=== PATIENT | female | born 1965 | race Two or more races ===

== ENCOUNTER 2022-06-26 19:34 | Inpatient (IN) | payer MEDICAID, OTHER ==
[~2022-06-26] VITALS: Ht 154.9 cm; Wt 107.4 kg
[2022-06-26 20:01] LABS: Basophils # (auto) 0.1 10 ^3/uL (0-0.2); Basophils % (auto) 1.4 % (0.0-2.0); Eosinophils # (auto) 0.2 10 ^3/uL (0-0.8); Eosinophils % (auto) 2.1 % (0.0-7.0); Hematocrit 38.1 % (36.0-46.0); Hemoglobin 12.2 g/dL (12.2-16.2); Lymphocytes # (auto) 1.4 10 ^3/uL (0.4-5.4); Lymphocytes % (auto) 13.8 % (10.0-50.0); Mean Corpuscular Hemoglobin 21.6 pg (28.0-32.0); Mean Corpuscular Volume 67.4 fL (80.0-100.0); Monocytes # (auto) 0.6 10 ^3/uL (0-1.3); Monocytes % (auto) 6.3 % (0.0-12.0); Neutrophils # (auto) 7.5 10 ^3/uL (1.6-8.6); Neutrophils % (auto) 76.4 % (37.0-80.0); Nucleated Red Blood Cells % 0.1 %; Red Blood Cells 5.65 10^6/uL (4.0-5.20); Red Cell Distribution Width 15.6 % (11.8-14.3); White Blood Cell 9.8 10^3/uL (4.4-10.8)
[2022-06-26 20:16] LABS: Albumin 2.7 g/dL (3.4-5.0); Calcium 8.1 mg/dL (8.5-10.1); Magnesium 2.4 mg/dL (1.6-2.6); Potassium 4.5 mmol/L (3.5-5.1)
[2022-06-26 20:18] LABS: INR 0.97 (0.9-1.15); Partial Thromboplastin Time 25.5 sec (24.6-33.4)
[2022-06-26 20:19] LABS: Bilirubin, Total 0.3 mg/dL (0.2-1.0); Total Protein 5.3 g/dL (6.4-8.2)
[2022-06-26] MEDS ORDERED: HYDROcodone-ACET 10/325MG TAB PO ONE (21:15)
[2022-06-26] MEDS ORDERED: HYDROcodone-ACET 10/325MG TAB PO PRN (23:45)
[2022-06-26] MEDS ORDERED: FUROSEMIDE 40 MG/4 ML VIAL IV ONE (23:45)
[2022-06-26] MEDS ORDERED: cloNIDine HCL 0.1 MG TAB PO ONE (23:45)
[2022-06-27] MEDS ORDERED: NITROGLYCERIN 0.4 MG SL TAB SL PRN (00:45)
[2022-06-27] MEDS ORDERED: DOCUSATE SOD 100 MG CAP PO PRN (00:45)
[2022-06-27] MEDS ORDERED: MORPHINE SULFATE INJ 2 MG/ml SYRG IV PRN ×2 (00:45)
[2022-06-27 02:20] LABS: Urine Bacteria NONE SEEN /hpf (None Seen); Urine Blood Negative /uL (Negative); Urine Mucus FEW (None Seen); Urine Specific Gravity 1.012 (1.001-1.035); Urine WBC 1 /hpf (0 - 5)
[2022-06-27] MEDS: hydrALAZINE HCL 20 MG/ML VL IV PRN (03:18)
[2022-06-27] MEDS: SODIUM CHLOR 0.9% PF (SALINE LOCK) 10ML VIAL/SYR IV SCH ×3 (06:06→22:25)
[2022-06-27 06:45] LABS: Basophils # (auto) 0.1 10 ^3/uL (0-0.2); Eosinophils # (auto) 0.1 10 ^3/uL (0-0.8); Hemoglobin 12.5 g/dL (12.2-16.2); Nucleated Red Blood Cells % 0.1 %
[2022-06-27 06:48] LABS: Basophils % (auto) 0.8 % (0.0-2.0); Hematocrit 38.5 % (36.0-46.0); Lymphocytes # (auto) 1.2 10 ^3/uL (0.4-5.4); Lymphocytes % (auto) 13.4 % (10.0-50.0); Mean Corpuscular Hemoglobin 22.1 pg (28.0-32.0); Mean Corpuscular Hgb Conc. 32.5 g/dL (32.0-36.0); Monocytes # (auto) 0.5 10 ^3/uL (0-1.3); Monocytes % (auto) 5.7 % (0.0-12.0); Neutrophils # (auto) 7.3 10 ^3/uL (1.6-8.6); Neutrophils % (auto) 79.1 % (37.0-80.0); Red Blood Cells 5.66 10^6/uL (4.0-5.20); Red Cell Distribution Width 15.7 % (11.8-14.3); White Blood Cell 9.2 10^3/uL (4.4-10.8)
[2022-06-27] MEDS: ONDANSETRON HCL 4 MG/2 ML VIAL IV PRN (06:59)
[2022-06-27 07:01] LABS: Potassium 4.7 mmol/L (3.5-5.1)
[2022-06-27 07:10] LABS: Albumin 2.8 g/dL (3.4-5.0); BUN/Creatinine Ratio 21.8 (10.0-20.0); Bilirubin, Total 0.5 mg/dL (0.2-1.0); Calcium 8.8 mg/dL (8.5-10.1); Total Protein 5.2 g/dL (6.4-8.2)
[2022-06-27] MEDS: FAMOTIDINE (10MG/ML) 2ML VL IV SCH (09:40)
[2022-06-27] MEDS: ASPirin 81 mg TAB PO SCH (09:40)
[2022-06-27] MEDS: CARVEDILOL 12.5 MG TAB PO SCH ×2 (09:41→22:26)
[2022-06-27] MEDS ORDERED: FUROSEMIDE 40 MG/4 ML VIAL IV SCH (10:00)
[2022-06-27] MEDS: HYDROcodone-ACET 5/325MG TAB PO PRN (16:51)
[2022-06-27] MEDS: ATORVASTATIN 20 MG TAB PO SCH (22:25)
[2022-06-27] MEDS: FUROSEMIDE 40 MG/4 ML VIAL IV SCH (22:25)
[2022-06-27] MEDS: ACETAMINOPHEN 325 MG TAB PO PRN (22:43)
[2022-06-28] MEDS: SODIUM CHLOR 0.9% PF (SALINE LOCK) 10ML VIAL/SYR IV SCH ×3 (05:43→22:29)
[2022-06-28 05:58] LABS: Lymphocytes # (auto) 0.7 10 ^3/uL (0.4-5.4); Monocytes # (auto) 0.6 10 ^3/uL (0-1.3)
[2022-06-28 06:00] LABS: Basophils # (auto) 0 10 ^3/uL (0-0.2); Basophils % (auto) 0.6 % (0.0-2.0); Eosinophils # (auto) 0 10 ^3/uL (0-0.8); Eosinophils % (auto) 0.5 % (0.0-7.0); Hematocrit 35.7 % (36.0-46.0); Hemoglobin 11.4 g/dL (12.2-16.2); Lymphocytes % (auto) 8.9 % (10.0-50.0); Mean Corpuscular Hemoglobin 22.1 pg (28.0-32.0); Mean Corpuscular Hgb Conc. 32.1 g/dL (32.0-36.0); Monocytes % (auto) 8.5 % (0.0-12.0); Neutrophils # (auto) 6.1 10 ^3/uL (1.6-8.6); Neutrophils % (auto) 81.5 % (37.0-80.0); Nucleated Red Blood Cells % 0.1 %; Red Blood Cells 5.17 10^6/uL (4.0-5.20); Red Cell Distribution Width 15.7 % (11.8-14.3); White Blood Cell 7.4 10^3/uL (4.4-10.8)
[2022-06-28 06:04] LABS: Potassium 4.8 mmol/L (3.5-5.1)
[2022-06-28] MEDS: ACETAMINOPHEN 325 MG TAB PO PRN ×3 (06:10→20:23)
[2022-06-28 06:16] LABS: Albumin 2.4 g/dL (3.4-5.0); BUN/Creatinine Ratio 16.2 (10.0-20.0); Bilirubin, Total 0.2 mg/dL (0.2-1.0); Calcium 8.3 mg/dL (8.5-10.1); Total Protein 5.1 g/dL (6.4-8.2)
[2022-06-28] MEDS: CARVEDILOL 12.5 MG TAB PO SCH ×2 (09:56→22:29)
[2022-06-28] MEDS: ASPirin 81 mg TAB PO SCH (09:57)
[2022-06-28] MEDS: FUROSEMIDE 40 MG/4 ML VIAL IV SCH ×2 (09:57→22:28)
[2022-06-28] MEDS: FAMOTIDINE (10MG/ML) 2ML VL IV SCH (09:57)
[2022-06-28] MEDS: HYDROcodone-ACET 5/325MG TAB PO PRN (17:02)
[2022-06-28 22:00] VITALS: BP 147/79
[2022-06-28] MEDS: ATORVASTATIN 20 MG TAB PO SCH (22:29)
[2022-06-29] VITALS (9 sets, daily range): BP systolic 123–156; BP diastolic 68–97
[2022-06-29 05:55] LABS: Basophils # (auto) 0 10 ^3/uL (0-0.2); Eosinophils # (auto) 0 10 ^3/uL (0-0.8); Hemoglobin 11.3 g/dL (12.2-16.2); Lymphocytes # (auto) 0.5 10 ^3/uL (0.4-5.4); Monocytes # (auto) 0.4 10 ^3/uL (0-1.3); Neutrophils % (auto) 87.5 % (37.0-80.0)
[2022-06-29 05:58] LABS: Basophils % (auto) 0.5 % (0.0-2.0); Eosinophils % (auto) 0.1 % (0.0-7.0); Hematocrit 35.4 % (36.0-46.0); Lymphocytes % (auto) 6.6 % (10.0-50.0); Mean Corpuscular Hemoglobin 22.2 pg (28.0-32.0); Mean Corpuscular Volume 69.3 fL (80.0-100.0); Monocytes % (auto) 5.3 % (0.0-12.0); Neutrophils # (auto) 6.9 10 ^3/uL (1.6-8.6); Red Blood Cells 5.11 10^6/uL (4.0-5.20); Red Cell Distribution Width 15.7 % (11.8-14.3); White Blood Cell 7.9 10^3/uL (4.4-10.8)
[2022-06-29] MEDS: SODIUM CHLOR 0.9% PF (SALINE LOCK) 10ML VIAL/SYR IV SCH ×3 (06:00→21:39)
[2022-06-29] MEDS: ONDANSETRON HCL 4 MG/2 ML VIAL IV PRN (08:39)
[2022-06-29] MEDS ORDERED: ALBUTEROL SULF 2.5 MG/0.5ML(0.5%) NEB SOLN NEB PRN (09:00)
[2022-06-29] MEDS ORDERED: IPRATROPIUM BROM 0.5 MG/2.5ML INH SOL NEB PRN (09:00)
[2022-06-29 10:31] LABS: BUN/Creatinine Ratio 16.7 (10.0-20.0); Calcium 8.5 mg/dL (8.5-10.1)
[2022-06-29] MEDS: CARVEDILOL 12.5 MG TAB PO SCH ×2 (11:49→21:38)
[2022-06-29] MEDS: FAMOTIDINE (10MG/ML) 2ML VL IV SCH (11:50)
[2022-06-29] MEDS: ASPirin 81 mg TAB PO SCH (11:50)
[2022-06-29] MEDS: FUROSEMIDE 40 MG/4 ML VIAL IV SCH ×2 (11:51→21:37)
[2022-06-29 12:57] LABS: Potassium 4.6 mmol/L (3.5-5.1)
[2022-06-29] MEDS: ATORVASTATIN 20 MG TAB PO SCH (21:37)
[2022-06-30 05:00] VITALS: BP 183/83
[2022-06-30] MEDS: ACETAMINOPHEN 325 MG TAB PO PRN (05:16)
[2022-06-30] MEDS: hydrALAZINE HCL 20 MG/ML VL IV PRN (05:16)
[2022-06-30] MEDS: SODIUM CHLOR 0.9% PF (SALINE LOCK) 10ML VIAL/SYR IV SCH ×3 (06:14→22:00)
[2022-06-30 09:00] VITALS: BP 126/60
[2022-06-30] MEDS: cefTRIAXone 1GM/50ML D5W 50 ML IV SCH (09:00)
[2022-06-30] MEDS ORDERED: KETOROLAC TROMETH 30 MG/ML 1ML VIAL IV ONE (09:00)
[2022-06-30] MEDS: FAMOTIDINE (10MG/ML) 2ML VL IV SCH (10:00)
[2022-06-30] MEDS: AZITHROMYCIN 500MG/ 250ML 250 ML IV SCH (10:00)
[2022-06-30] MEDS: LOSARTAN POTASSIUM 25 MG TAB PO SCH (10:00)
[2022-06-30] MEDS: ASPirin 81 mg TAB PO SCH (10:00)
[2022-06-30 13:00] VITALS: BP 148/85
[2022-06-30] MEDS: FUROSEMIDE 40 MG/4 ML VIAL IV SCH ×2 (14:36→22:32)
[2022-06-30 16:54] VITALS: BP 154/91
[2022-06-30 20:00] VITALS: BP 134/81
[2022-06-30 22:00] VITALS: BP 158/93
[2022-06-30] MEDS: CARVEDILOL 12.5 MG TAB PO SCH (22:31)
[2022-06-30] MEDS: ATORVASTATIN 20 MG TAB PO SCH (22:31)
[2022-07-01 05:00] VITALS: BP 100/70
[2022-07-01] MEDS: SODIUM CHLOR 0.9% PF (SALINE LOCK) 10ML VIAL/SYR IV SCH (06:00)
[2022-07-01 06:27] LABS: Basophils # (auto) 0 10 ^3/uL (0-0.2); Hemoglobin 11.7 g/dL (12.2-16.2); Monocytes # (auto) 0.8 10 ^3/uL (0-1.3); Neutrophils # (auto) 6.7 10 ^3/uL (1.6-8.6)
[2022-07-01 06:30] LABS: Basophils % (auto) 0.4 % (0.0-2.0); Eosinophils # (auto) 0 10 ^3/uL (0-0.8); Eosinophils % (auto) 0.5 % (0.0-7.0); Hematocrit 37.3 % (36.0-46.0); Lymphocytes # (auto) 0.9 10 ^3/uL (0.4-5.4); Lymphocytes % (auto) 10.3 % (10.0-50.0); Mean Corpuscular Hemoglobin 21.9 pg (28.0-32.0); Mean Corpuscular Hgb Conc. 31.4 g/dL (32.0-36.0); Mean Corpuscular Volume 69.7 fL (80.0-100.0); Monocytes % (auto) 9.6 % (0.0-12.0); Neutrophils % (auto) 79.2 % (37.0-80.0); Nucleated Red Blood Cells % 0.1 %; Red Blood Cells 5.35 10^6/uL (4.0-5.20); Red Cell Distribution Width 15.4 % (11.8-14.3); White Blood Cell 8.5 10^3/uL (4.4-10.8)
[2022-07-01] MEDS: FUROSEMIDE 40 MG/4 ML VIAL IV SCH (06:30)
[2022-07-01 06:37] LABS: BUN/Creatinine Ratio 24.4 (10.0-20.0); Calcium 8.6 mg/dL (8.5-10.1)
[2022-07-01 08:55] VITALS: BP 145/74
[2022-07-01] MEDS ORDERED: AZITTAB PO (09:53)
[2022-07-01] MEDS ORDERED: BUDE1AER4 IN (09:53)
[2022-07-01] MEDS ORDERED: ALBUAER3 IN (09:53)
[2022-07-01] MEDS ORDERED: FURO1TAB33 PO (09:53)
[2022-07-01] MEDS ORDERED: CAR125T OR (09:53)
[2022-07-01] MEDS: cefTRIAXone 1GM/50ML D5W 50 ML IV SCH ×2 (09:55→10:17)
[2022-07-01] MEDS: FAMOTIDINE (10MG/ML) 2ML VL IV SCH (09:55)
[2022-07-01] MEDS: AZITHROMYCIN 500MG/ 250ML 250 ML IV SCH ×2 (09:56→10:17)
[2022-07-01] MEDS: ASPirin 81 mg TAB PO SCH (10:27)
[2022-07-01] MEDS: CARVEDILOL 12.5 MG TAB PO SCH (10:29)
[2022-07-01] MEDS: LOSARTAN POTASSIUM 25 MG TAB PO SCH (10:30)
== END 2022-07-01 12:26 | disposition home or self-care (01) | DRG 194 ==
LOC: EDBD 19:34 → ER 19:34 → TELE 06-27 00:34 → TELE-WESTW 06-28 20:58
PROVIDERS: ADMIT Nurse Practitioner Family; ATTEND Nurse Practitioner Acute Care
DX: I11.0 Hypertensive heart disease with heart failure (principal); J96.21 Acute and chronic respiratory failure with hypoxia; I21.A1 Myocardial infarction type 2; J15.6 Pneumonia due to other Gram-negative bacteria; I50.43 Acute on chronic combined systolic (congestive) and diastolic (congestive) heart failure; E11.9 Type 2 diabetes mellitus without complications; E66.01 Morbid (severe) obesity due to excess calories; I34.0 Nonrheumatic mitral (valve) insufficiency; I16.0 Hypertensive urgency; I70.0 Atherosclerosis of aorta; Z79.84 Long term (current) use of oral hypoglycemic drugs; Z91.040 Latex allergy status; Z72.0 Tobacco use; Z68.42 Body mass index [BMI] 45.0-49.9, adult; E83.51 Hypocalcemia; E88.09 Other disorders of plasma-protein metabolism, not elsewhere classified; N17.9 Acute kidney failure, unspecified
CPT/HCPCS: 36415; 51702; 71045; 80048; 80053; 81001; 83735; 83880; 84484; 85025; 85610; 85730; 87081; 93005; 93306; 93970; 94640; 96374; 96375; G0378; J0696; J1885; J2405; J3490

== ENCOUNTER 2024-06-04 13:03 | Inpatient (IN) | payer MEDICAID ==
[~2024-06-04] VITALS: Ht 154.9 cm; Wt 106.3 kg
[~2024-06-04 13:03] MED LIST: ALBU108A5 INH; ALBUAER3 IN; AMLO1TAB22 PO; AZITTAB PO; BUDE1AER4 IN; CARV-216 OR; ERGO1CAP23 PO; FURO1TAB33 PO; METF-370 PO
--- NOTE | 2024-06-04 13:10 | ED.PDOC ---
SOB-HPI HPI Comments 58 year old female with PMHx of HTN, DM, hyperlipidemia, and CHF, presents to the ED via EMS for a chief complaint of SOB x 2-3 days associated with left sided chest pain radiating to her neck and left arm x today. EMS reports patient on scene had RR at 60, working hard to breath and is unable to speak a full sentence. Patient was saturating at 83% room air and placed on a breathing treatment. EMS reports patient is on 2 liters of oxygen at home but on scene, patient was not using oxygen. Patient had elevated blood pressure of 240 systolic, received 3 NTG with repeated blood pressure of 190 systolic. Patient denies any nausea, vomiting, diarrhea, abdominal pain, leg swelling, fever, chills or recent illness Time Seen by MD: 13:00 Reviewed notes: Nurses Notes, [employer] Principal Notes, Medications, Allergies Information Source: Patient, Emergency Med Personnel Mode of Arrival: EMS Severity: Moderate Timing: Days (2-3) Duration: Since onset Context: At Rest PE Risk Factors: None History of: CHF Prehospital treatment: 12 Lead EKG, Accucheck (103), Breathing Tx, [employer], NTG (3), Oxygen Modifying Factors: Nothing Associated Signs and Symptoms: Chest Pain Quality: Sharp Radiation: Neck, Arm (L) Location: Chest (L) Past Medical History PAST MEDICAL HISTORY: CHF, DM, High Lipids, HTN Surgical History: Denies all surgeries STRATEGIC PROCUREMENT MANAGER History: No Pertinent STRATEGIC PROCUREMENT MANAGER History Family History Family History: Reviewed,noncontributory to illness, No family hx of Cancer, No family hx of DM, No family hx of Heart cady, No family hx of HTN, No family hx ofKidney cady, No family hx of Liver cady, No family hx of Lung cady, No family hx of Stroke Social History Smoker: Non-Smoker Alcohol: Denies ETOH Use Drugs: Denies Drug Use Lives In: Home Constitutional: denies: chills, diaphoresis, fatigue, fever, malaise, sweats, weakness, others EENTM: denies: blurred vision, double vision, ear bleeding, ear discharge, ear drainage, ear pain, ear ringing, eye pain, eye redness, hearing loss, mouth pain, mouth swelling, nasal discharge, nose bleeding, nose congestion, nose pain, photophobia, tearing, throat pain, throat swelling, voice changes, others Respiratory: reports: SOB at rest, shortness of breath, SOB with excertion; denies: cough, hemoptysis, orthopnea, stridor, wheezing, others Cardiovascular: reports: chest pain, left arm pain; denies: dizzy spells, diaphoresis, Dyspnea on exertion, edema, irregular heart beat, lightheadedness, palpitations, PND, syncope, others Gastrointestinal: denies: abdomen distended, abdominal pain, blood streaked bowels, constipated, diarrhea, dysphagia, difficulty swallowing, hematemesis, melena, nausea, poor appetite, poor fluid intake, rectal bleeding, rectal pain, vomiting, others Genitourinary: denies: abnormal vagina bleeding, burning, dyspareunia, dysuria, flank pain, frequency, hematuria, incontinence, pain, , vagina disch arge, urgency, others Neurological: denies: dizziness, fainting, headache, left sided numbness, left sided weakness, numbness, paresthesia, pre-existing deficit, right sided numbness, right sided weakness, seizure, speech problems, tingling, tremors, weakness, others Musculoskeletal: reports: neck pain; denies: back pain, gout, joint pain, joint swelling, muscle pain, muscle stiffness, others Integumetry: denies: bruises, change in color, change in hair/nails, dryness, laceration, lesions, lumps, rash, wounds, others Allergic/Immunocompromised: denies: Difficulty Healing, Frequent Infections, Hives, Itching, others Hematologic/Lymphatic: denies: anemia, blood clots, easy bleeding, easy bruising, swollen glands, others Endocrine: denies: excessive hunger, excessive sweating, excessive thirst, excessive urination, flushing, intolerance to cold, intolerance to heat, unexplained weight gain, unexplained weight loss, others Psychiatric: denies: anxiety, bipolar disorder, depression, hopeless, panic disorder, schizophrenia, sleepless, suicidal, others All Other Systems: Reviewed and Negative Physical Exam General Appearance: Moderate Distress, Obese HEENT: Normal ENT Inspection, Pharynx Normal, TMs Normal Neck: Full Range of Motion, Non-Tender, Normal, Normal Inspection Respiratory: Chest Non-Tender, Decreased Breath Sounds, Lungs Clear, No Accessory Muscle Use, Respiratory Distress Cardiovascular: No Edema, No JVD, No Murmur, No Gallop, Normal Peripheral Pulses, Regular Rate/Rhythm Breast Exam: Deferred Gastrointestinal: No Organomegaly, Non Tender, No Pulsatile Mass, Normal Bowel Sounds, Soft Genitalia: Deferred Pelvic: Deferred Rectal: Deferred Extremities: No calf tenderness, Normal capillary refill, Normal inspection, Normal range of motion, Non-tender, No pedal edema Musculoskeletal : Apperance: Normal Neurologic: Alert, section beamer II-XII nml as Tested, Motor Weakness, Normal Affect, Normal Mood, No Sensory Deficits Cerebellar Function: Normal Reflexes: Normal Skin: Dry, Pallor, Warm Lymphatic: No Adenopathy EKG EKG : Pulse Rate (adult): 75 [place]: Normal Cardiac Rhythm: NSR Block: RBBB Hypertrophy: LAE Was a procedure done? Was a procedure done?: No Differential Dx Differential Diagnosis: Bronchitis, CHF, COPD, Hyperventilation, Hyponatremia, Myocardial infarction, Pneumonia, Pneumothorax, Pulmonary Embolism, Respiratory Distress, URI X-Ray, Labs, Meds, VS Vital Signs Date Time Temp Pulse Resp B/P (MAP) Pulse Ox O2 Delivery O2 Flow Rate FiO2 06/04/24 14:00 172/101 06/04/24 14:00 77 14 98 Nasal Cannula* 6 44 06/04/24 13:37 97.9 77 14 172/101 (124) 98 97.9 06/04/24 13:30 75 06/04/24 13:14 98.5 79 30 160/100 (120) 95 98.5 Lab Test 06/04/24 14:32 06/04/24 13:30 Range/Units Troponin I High Sensitivity Pending 297 *H </=34 ng/L White Blood Count 5.8 4.4-10.8 10^3/uL Red Blood Count 5.37 H 4.0-5.20 10^6/uL Hemoglobin 12.0 L 12.2-16.2 g/dL Hematocrit 39.4 36.0-46.0 % Mean Corpuscular Volume 73.4 L 80.0-100.0 fL Mean Corpuscular Hemoglobin 22.3 L 28.0-32.0 pg Mean Corpuscular Hemoglobin Concent 30.4 L 32.0-36.0 g/dL Red Cell Distribution Width 15.4 H 11.8-14.3 % Platelet Count 187 140-450 10^3/uL Mean Platelet Volume 8.2 6.9-10.8 fL Neutrophils (%) (Auto) 75.1 37.0-80.0 % Lymphocytes (%) (Auto) 15.6 10.0-50.0 % Monocytes (%) (Auto) 6.8 0.0-12.0 % Eosinophils (%) (Auto) 1.9 0.0-7.0 % Basophils (%) (Auto) 0.6 0.0-2.0 % Neutrophils # (Auto) 4.4 1.6-8.6 10 ^3/uL Lymphocytes # (Auto) 0.9 0.4-5.4 10 ^3/uL Monocytes # (Auto) 0.4 0-1.3 10 ^3/uL Eosinophils # (Auto) 0.1 0-0.8 10 ^3/uL Basophils # (Auto) 0 0-0.2 10 ^3/uL Nucleated Red Blood Cells 0.1 % Sodium Level 143 136-145 mmol/L Potassium Level 4.0 3.5-5.1 mmol/L Chloride Level 104 98-107 mmol/L Carbon Dioxide Level 33 H 20-31 mmol/L Anion Gap 6 5-15 Blood Urea Nitrogen 12 9-23 mg/dL Creatinine 0.80 0.550-1.02 mg/dL Glomerular Filtration Rate Calc 85 >90 mL/min BUN/Creatinine Ratio 15.0 10.0-20.0 Serum Glucose 92 74-106 mg/dL Calcium Level 9.5 8.7-10.4 mg/dL B-Type Natriuretic Peptide 447.84 0-100 pg/mL Current Medications Medications (Trade) Dose Ordered Sig/Kim Route Start Time Stop Time Status Last Admin Furosemide (Lasix Injection) 40 mg ONCE ONCE IV 06/04/24 13:15 06/04/24 13:16 DC 06/04/24 14:00 XY CHEST PORTABLE, IMPRESSION: Cardiomegaly. IV Hep-Lock was established The patient was given Lasix 40 mg IV push The BNP is 447.84 which is slightly elevated The patient's 1st troponin level came back elevated at 297 The CBC is within normal limits The chemistry panel is within normal limits except for a CO2 level of 33 At this time, the patient was being admitted to the hospitalist. The patient will be started on a nicardipine drip secondary to the significantly elevated blood pressure Images Reviewed?: Images reviewed and evaluated by me Time of 1ST Reevaluation: 13:09 Reevaluation 1ST: Unchanged Patient Education/Counseling: Diagnosis, Treatment, Prognosis Family Education/Counseling: No Family Present Departure 1 Departure Time of Disposition: 14:50 Impression: Primary Impression: Acute on chronic diastolic heart failure Additional Impression: Hypertensive crisis Disposition: 09 ADMITTED INPATIENT Admit to: [facility] Condition: Fair Critical Care Note Critical Care Time?: Yes (45 min-critical care time only) Stability Stability form required: Yes Unstable for transfer: ICU, CCU, PCU, [facility] (Intensive VS monitoring), May require CPR (possible rapid decline), ED Physician Assesment (Clinical assesment) Heart Score Heart Score: Heart Score Response (Comments) Value History Moderate Suspicious 1 EKG Repolarization Disturb 1 Age 45-64 1 Risk Factors >3 or Hx ASHD 2 Troponin 1-2 x's Normal limit 1 Total 6 I personally scribed for HUNG MCNULTY MD ([email or web address]) on 06/04/24 at 13:10. Electronically submitted by Isabell Zhong ([facility] I personally scribed for HUNG MCNULTY MD ([email or web address]) on 06/04/24 at 14:06. Electronically submitted by Isabell Zhong ([facility]). HUNG MCNULTY MD Jun 04, 2024 13:10
[2024-06-04 13:38] LABS: Basophils # (auto) 0 10 ^3/uL (0-0.2); Eosinophils # (auto) 0.1 10 ^3/uL (0-0.8); Lymphocytes # (auto) 0.9 10 ^3/uL (0.4-5.4); Mean Corpuscular Hemoglobin 22.3 pg (28.0-32.0); Monocytes # (auto) 0.4 10 ^3/uL (0-1.3); Neutrophils % (auto) 75.1 % (37.0-80.0)
[2024-06-04 13:40] LABS: Basophils % (auto) 0.6 % (0.0-2.0); Eosinophils % (auto) 1.9 % (0.0-7.0); Hematocrit 39.4 % (36.0-46.0); Lymphocytes % (auto) 15.6 % (10.0-50.0); Mean Corpuscular Hgb Conc. 30.4 g/dL (32.0-36.0); Mean Corpuscular Volume 73.4 fL (80.0-100.0); Monocytes % (auto) 6.8 % (0.0-12.0); Neutrophils # (auto) 4.4 10 ^3/uL (1.6-8.6); Nucleated Red Blood Cells % 0.1 %; Platelet Count (auto) 187 10^3/uL (140-450); Red Blood Cells 5.37 10^6/uL (4.0-5.20); Red Cell Distribution Width 15.4 % (11.8-14.3); White Blood Cell 5.8 10^3/uL (4.4-10.8)
[2024-06-04 13:47] LABS: Chloride 104 mmol/L (98-107); Sodium 143 mmol/L (136-145)
[2024-06-04 13:48] LABS: Anion Gap 6 (5-15)
[2024-06-04 13:49] LABS: Calcium 9.5 mg/dL (8.7-10.4)
[2024-06-04 13:54] LABS: Blood Urea Nitrogen 12 mg/dL (9-23); Carbon Dioxide 33 mmol/L (20-31); Glucose 92 mg/dL (74-106)
--- NOTE | 2024-06-04 13:59 | DVH ---
XY CHEST PORTABLE, HISTORY: sob COMPARISON: XY CHEST PORTABLE on DOS: 07/01/22, XY CHEST XRAY 1 VIEW on DOS: 06/29/22, XY CHEST PORTABL E on DOS: 06/28/22 XY CHEST PORTABLE on DOS: 07/01/22, XY CHEST XRAY 1 VIEW on DOS: 06/29/22, XY CHEST PORTABLE on DOS: TECHNICAL DATA: 1 view of the chest was obtained. FINDINGS: Lines and tubes: None Cardiomediastinal silhouette: Large Pulmonary vasculature: normal Lung expansion: normal Lung airspace: normal Lung interstitium: normal Pleura: normal Pneumothorax: no Bones: Unremarkable Other: no IMPRESSION: Cardiomegaly.
[2024-06-04 14:00] VITALS: PULSE 77; RESP 14; O2SAT 98
[2024-06-04] MEDS: FUROSEMIDE 40 MG/4 ML VIAL IV ONE (14:00)
[2024-06-04 15:02] LABS: Urine Bacteria None Seen /hpf (None Seen)
[2024-06-04 15:13] LABS: Urine Blood Negative /uL (Negative); Urine Clarity Clear (Clear); Urine Color Light-Yellow (Yellow); Urine Protein, UAD Negative (Negative); Urine Specific Gravity 1.014 (1.001-1.035); Urine Squamous Epithelial Cell FEW /hpf (<5); Urine Urobilinogen Normal (Negative); Urine WBC < 1 /HPF (0-5)
[2024-06-04] MEDS ORDERED: DOCUSATE SOD 100 MG CAP PO PRN (16:00)
[2024-06-04] MEDS ORDERED: ONDANSETRON HCL 4 MG/2 ML VIAL IV PRN (16:00)
[2024-06-04] MEDS ORDERED: DEXTROSE (50%) 50ML SYRG IV PRN (16:00)
[2024-06-04] MEDS: ACETAMINOPHEN 325 MG TAB PO PRN (16:12)
[2024-06-04] MEDS: ASPirin 81 mg TAB PO ONE (16:32)
[2024-06-04] MEDS: amLODIPine BESYLATE 5 MG TAB PO ONE (16:32)
--- NOTE | 2024-06-04 16:37 | DVHHP2 ---
History of Present Illness Reason for Visit: Acute exacerbation of congestive heart failure History of Present Illness The patient is a 58-year-old female with past medical history of CHF, DM, hyperlipidemia, and hypertension who presented to [facility] ED with complaint of chest pain. Patient reports symptoms progressively get worse with radiating to her left arm, neck pain, associated shortness of breath, hypoxia with O2 saturation at 83% on room air, getting worse that prompted this visit. Patient was seen and evaluated in the ED, laboratory data shows WBC 5.8, pl atelets 187, sodium 143, potassium 4.0, BUN 12, creatinine 0.80, GFR 85, glucose 92, troponin 297, D-dimer 0.24, BNP 447.84, blood pressure 172/101 trending down to 144/84, heart rate 86, temperature 97.9 F, O2 saturation 98% on oxygen. Heart rate revealing cardiomegaly. Please see medication orders section in the computer. On my assessment, patient denied chest pain, no headache, no dizziness, no diaphoresis, currently on oxygen, no nausea, no vomiting, no fever, no chills. Patient was admitted for further evaluation and medical management. Past Medical History CHF, DM, High Lipids, HTN Past Surgical History Denies all surgeries Family History Reviewed, noncontributory to the management of this case. Past Social History The patient lives at home, denies smoking, alcohol or illicit drugs abuse. Review of Systems Constitutional: No: Fever, Chills, Sweats, Weakness, Malaise, Other Eyes: No: Pain, Vision change, Conjunctivae inflammation, Eyelid inflammation, Other, Redness ENT: No: Ear pain, Ear discharge, Nose pain, Nose discharge, Nose congestion, Mouth pain, Mouth swelling, Throat pain, Throat swelling, Other Respiratory: Shortness of breath, SOB with excertion, Other (SOB at rest); No: Cough, Dry, Wheezing, Hemoptysis, Pleuritic Pain, Sputum, Wheezing Cardiovascular: Chest Pain, Other (Left arm pain); No: Palpitations, Orthopnea, Paroxysmal Noc. Dyspnea, Edema, Lt Headedness Gastrointestinal: No: Nausea, Vomiting, Abdominal Pain, Diarrhea, Constipation, Melena, Hematochezia, Other Genitourinary: No Dysuria, No Frequency, No Incontinence, No Hematuria, No Retention, No Other Musculoskeletal: neck pain; No: other, shoulder pain, arm pain, back pain, hand pain, leg pain, foot pain Skin: No: Rash, Lesions, Jaundice, Bruising, Other Neurological: No: Weakness, Numbness, Incoordination, Change in speech, Confusion, Seizures, Other Allergies: Coded Allergies: Hydrocodone (Verified Allergy, Intermediate, nausea, 06/29/22) Morphine (Verified Allergy, Intermediate, 06/04/24) Hives and Rash Latex (Verified Allergy, Unknown, 06/26/22) Medications Current Medications Medications Dose Ordered Sig/Kim Route Start Time Stop Time Status Last Admin Dose Admin Nicardipine HCl 250 ml @ 50 mls/hr Q5H IV 06/04/24 15:00 06/04/24 15:26 50 MLS/HR Furosemide 40 mg DAILY IV 06/05/24 10:00 Carvedilol 12.5 mg Q12HR PO 06/04/24 22:00 Amlodipine Besylate 5 mg DAILY PO 06/05/24 10:00 Hydralazine HCl 10 mg Q6HP PRN IV 06/04/24 16:00 Aspirin 81 mg DAILY PO 06/05/24 10:00 Diagnostic Test (Pha) 1 strip ACHS 06/04/24 17:00 Insulin Human Regular ACHS SC 06/04/24 17:00 Dextrose 50 ml UD PRN IV 06/04/24 16:00 Sodium Chloride 10 ml Q8HR IV 06/04/24 22:00 Ondansetron HCl 4 mg Q4HP PRN IV 06/04/24 16:00 Docusate Sodium 100 mg BIDPRN PRN PO 06/04/24 16:00 Acetaminophen 650 mg Q6HP PRN PO 06/04/24 16:00 06/04/24 16:12 650 MG Albuterol 2.5 mg Q4HPRN PRN NEB 06/04/24 16:00 Exam Vital Signs Vital Signs Date Time Temp Pulse Resp B/P (MAP) Pulse Ox O2 Delivery O2 Flow Rate FiO2 06/04/24 16:32 160/98 06/04/24 16:12 97.9 06/04/24 15:26 86 06/04/24 14:00 14 98 Nasal Cannula* 6 44 General Appearance: Alert, Oriented X3, Cooperative, No acute distress HEENT: Atraumatic, PERRLA, EOMI, Mucous membr. moist/pink Respiratory: Normal air movement Cardiovascular: Regular rate, Normal S1, Normal S2, No murmurs Abdominal: Normal bowel sounds, Soft, No tenderness, No hepatospenomegaly, No masses Extremities: No clubbing, No cyanosis, No edema, Normal pulses, No tenderness/swelling Skin: No rashes, No breakdown, No significant lesion Neuro: Normal speech, Normal tone, Sensation intact, Cranial nerves 3-12 NL, Reflexes 2+, Other (Generalized weakness) Psych/Mental Status: Mental status NL, Mood NL Labs/Xrays Labs Test 06/04/24 14:32 06/04/24 14:03 06/04/24 13:30 Range/Units Troponin I High Sensitivity 245 *H </=34 ng/L Urine Color Light-yellow Yellow Urine Clarity Clear Clear Urine pH 6.0 5.0-9.0 Urine Specific [place] 1.014 1.001-1.035 Urine Protein Negative Negative Urine Ketones Negative Negative Urine Blood Negative Negative /uL Urine Nitrite Negative Negative Urine Bilirubin Negative Negative Urine Urobilinogen Normal Negative mg/dL Urine Leukocyte Esterase Negative Negative /uL Urine RBC <1 0 - 4 /hpf Urine Microscopic WBC < 1 0-5 /HPF Urine Squamous Epithelial Cells Few <5 /hpf Urine Bacteria None seen None Seen /hpf Urine Glucose Normal Normal mg/dL White Blood Count 5.8 4.4-10.8 10^3/uL Red Blood Count 5.37 H 4.0-5.20 10^6/uL Hemoglobin 12.0 L 12.2-16.2 g/dL Hematocrit 39.4 36.0-46.0 % Mean Corpuscular Volume 73.4 L 80.0-100.0 fL Mean Corpuscular Hemoglobin 22.3 L 28.0-32.0 pg Mean Corpuscular Hemoglobin Concent 30.4 L 32.0-36.0 g/dL Red Cell Distribution Width 15.4 H 11.8-14.3 % Platelet Count 187 140-450 10^3/uL Mean Platelet Volume 8.2 6.9-10.8 fL Neutrophils (%) (Auto) 75.1 37.0-80.0 % Lymphocytes (%) (Auto) 15.6 10.0-50.0 % Monocytes (%) (Auto) 6.8 0.0-12.0 % Eosinophils (%) (Auto) 1.9 0.0-7.0 % Basophils (%) (Auto) 0.6 0.0-2.0 % Neutrophils # (Auto) 4.4 1.6-8.6 10 ^3/uL Lymphocytes # (Auto) 0.9 0.4-5.4 10 ^3/uL Monocytes # (Auto) 0.4 0-1.3 10 ^3/uL Eosinophils # (Auto) 0.1 0-0.8 10 ^3/uL Basophils # (Auto) 0 0-0.2 10 ^3/uL Nucleated Red Blood Cells 0.1 % D-Dimer, Quantitative 0.24 0.0-0.49 mg/L FEU Sodium Level 143 136-145 mmol/L Potassium Level 4.0 3.5-5.1 mmol/L Chloride Level 104 98-107 mmol/L Carbon Dioxide Level 33 H 20-31 mmol/L Anion Gap 6 5-15 Blood Urea Nitrogen 12 9-23 mg/dL Creatinine 0.80 0.550-1.02 mg/dL Glomerular Filtration Rate Calc 85 >90 mL/min BUN/Creatinine Ratio 15.0 10.0-20.0 Serum Glucose 92 74-106 mg/dL Calcium Level 9.5 8.7-10.4 mg/dL B-Type Natriuretic Peptide 447.84 0-100 pg/mL PATIENT: HENRI ARMENDARIZ ACCT: [id number] UNIT: [id number] : 09/10/1966 LOC: ER ROOM / BED: / AGE / SEX: 57 / F ADM STATUS: REG ER SERVICE 1315 ORDERING PHYSICIAN: HUNG MCNULTY MD PROCEDURE(s): CXRP - CHEST PORTABLE REASON: sob ORDER NUMBER(s): [id number], ACCESSION NUMBER(s): [id number] XY CHEST PORTABLE, HISTORY: sob COMPARISON: XY CHEST PORTABLE on DOS: 07/01/22, XY CHEST XRAY 1 VIEW on DOS: 06/29/22, XY CHEST PORTABLE on DOS: 06/28/22 XY CHEST PORTABLE on DOS: 07/01/22, XY CHEST XRAY 1 VIEW on DOS: 06/29/22, XY CHEST PORTABLE on DOS: 06/28/22 TECHNICAL DATA: 1 view of the chest was obtained. FINDINGS: Lines and tubes: None Cardiomediastinal silhouette: Large Pulmonary vasculature: normal Lung expansion: normal Lung airspace: normal Lung interstitium: normal Pleura: normal Pneumothorax: no Bones: Unremarkable Other: no IMPRESSION: Cardiomegaly. Assessment/Plan Assessment/Plan Acute on chronic diastolic heart failure Hypertensive crisis Elevated troponin Generalized weakness Acute respiratory failure Plan 1. Admit to telemetry unit 2. Breathing treatment 3. Pain control management 4. Management of fluids and electrolytes 5. Consultation for Cardiology 6. Diagnostic tests chest x-ray 7. DVT prophylaxis on aspirin 8. Repeat labs CBC, CMP in a.m. 9. Continue with current medical management 10. Treatment plan discussed with patient and RN. Patient verbalized understanding. Plan discussed with: Patient, Other (RN) My Orders Orders - SOO PARR DNP Procedure Category Date Status Time Consistent DIET 06/04/24 Transmitted Carb(Ccho)Diabetes Dinner Furosemide Injection PHA 06/05/24 In Process (Lasix Injection) 10:00 Carvedilol Tablet PHA 06/04/24 In Process (Coreg Tablet) 22:00 Amlodipine Tablet PHA 06/05/24 In Process (Norvasc Tablet) 10:00 Hydralazine Injection PHA 06/04/24 In Process (Apresoline Inject 16:00 Aspirin Tablet PHA 06/05/24 In Process 10:00 * Cardiology Consult CONS 06/04/24 Transmitted 15:46 Glucose Blood PHA 06/04/24 In Process (Accu-Chek Comfort 17:00 Insulin R (Human) PHA 06/04/24 In Process (Insulin R) 17:00 Dextrose 50% Syringe PHA 06/04/24 In Process 16:00 Allergies HALLIE 06/04/24 In Process 15:46 Code Status CODE 06/04/24 Transmitted 15:46 Sodium Chloride Lock PHA 06/04/24 In Process (Saline Lock Ns) 22:00 Oxygen Per Hour RT 06/04/24 Transmitted 15:46 Ondansetron Hcl PHA 06/04/24 In Process (Zofran) 16:00 Docusate Sodium PHA 06/04/24 In Process Capsule (Colace 16:00 Complete Blood Count LAB 06/05/24 Verified 04:00 Comprehensive LAB 06/05/24 Verified Metabolic Panel 04:00 Echo 2d Mode Cardiac US 06/04/24 Logged DOP 15:46 Condition: Serious HALLIE 06/04/24 In Process 15:46 Acetaminophen Tablet PHA 06/04/24 In Process (Tylenol Tablet) 16:00 Bedrest With Bathroom HALLIE 06/04/24 In Process Privileg 15:[address] [facility] 06/04/24 In Process Compression Device Albuterol Medneb [facility] 06/04/24 In Process (Ventolin Medneb) 16:00 Admit ADMIT 06/04/24 Transmitted 16:34 Nitroglycerin [facility] 06/04/24 Transmitted Sublingual (Ntrostat 16:45 Morphine Sulfate PHA 06/04/24 Transmitted Injection 16:45 Stat Ekg For Chest [facility] 06/04/24 Transmitted Pain 16:34 Notify Md Of Changes [facility] 06/04/24 Transmitted From Base 16:34 River Tester [address] [facility] 06/04/24 Transmitted 24 Hours 16:34 Emergency Dysrhythmia [facility] 06/04/24 Transmitted Protocol 16:34 Rhythm Strips Once [facility] 06/04/24 Transmitted Every Shift 16:34 Oxygen By Nasal RT 06/04/24 Transmitted Cannula 16:34 Problem List: (1) Acute on chronic diastolic heart failure (2) Hypertensive crisis (3) Elevated troponin (4) Generalized weakness (5) Acute respiratory failure Date of Service: Jun 04, 2024 Billing Provider: SOO PARR DNP Common Visit Codes: [id number] INP/OBS CARE (HIGH) SOO PARR DNP Jun 04, 2024 16:36
[2024-06-04 16:38] VITALS: BP 160/98; PULSE 77; RESP 14; TEMP 97.9; O2SAT 98
[2024-06-04 16:44] VITALS: O2SAT 98
[2024-06-04] MEDS ORDERED: NITROGLYCERIN 0.4 MG SL TAB SL PRN (16:45)
[2024-06-04] MEDS: InsuLIN REG 1unit/0.01ml Soln (100units/ml) SC SCH (17:00)
[2024-06-04] MEDS: ACCU-CHEK COMFORT CURVE STRIP VI SCH (17:07)
[2024-06-04] MEDS: ALBUTEROL SULF 2.5 MG/0.5ML(0.5%) NEB SOLN NEB PRN (18:12)
[2024-06-04 19:30] VITALS: PULSE 92; RESP 13; O2SAT 98
[2024-06-04] MEDS: MORPHINE SULFATE INJ 2 MG/ml SYRG IV PRN (20:39)
[2024-06-04] MEDS: SODIUM CHLOR 0.9% PF (SALINE LOCK) 10ML VIAL/SYR IV SCH (23:00)
[2024-06-04] MEDS: CARVEDILOL 12.5 MG TAB PO SCH (23:02)
[2024-06-05] VITALS (11 sets, daily range): BP systolic 141–168; BP diastolic 76–99; PULSE 65–85; RESP 16–20; TEMP 97.5–98.2; O2SAT 96–100
[2024-06-05 05:09] LABS: Basophils # (auto) 0 10 ^3/uL (0-0.2); Hemoglobin 11.4 g/dL (12.2-16.2); Lymphocytes # (auto) 0.7 10 ^3/uL (0.4-5.4); Lymphocytes % (auto) 10.9 % (10.0-50.0); Mean Corpuscular Hemoglobin 22.8 pg (28.0-32.0); Neutrophils # (auto) 4.9 10 ^3/uL (1.6-8.6)
[2024-06-05 05:11] LABS: Basophils % (auto) 0.6 % (0.0-2.0); Eosinophils # (auto) 0.1 10 ^3/uL (0-0.8); Eosinophils % (auto) 2.4 % (0.0-7.0); Hematocrit 36.4 % (36.0-46.0); Mean Corpuscular Hgb Conc. 31.3 g/dL (32.0-36.0); Mean Corpuscular Volume 72.9 fL (80.0-100.0); Monocytes # (auto) 0.5 10 ^3/uL (0-1.3); Monocytes % (auto) 7.4 % (0.0-12.0); Neutrophils % (auto) 78.7 % (37.0-80.0); Platelet Count (auto) 173 10^3/uL (140-450); Red Blood Cells 4.99 10^6/uL (4.0-5.20); White Blood Cell 6.3 10^3/uL (4.4-10.8)
[2024-06-05 05:36] LABS: Alanine Aminotransferase 42 U/L (7-40); Albumin 4.1 g/dL (3.2-4.8); Alkaline Phosphatase 81 U/L (46-116); Anion Gap 6 (5-15); Aspartate Aminotransferase 25 U/L (13-40); Bilirubin, Total 0.5 mg/dL (0.2-1.0); Blood Urea Nitrogen 13 mg/dL (9-23); Calcium 9.5 mg/dL (8.7-10.4); Carbon Dioxide 33 mmol/L (20-31); Chloride 101 mmol/L (98-107); Glucose 132 mg/dL (74-106); Potassium 3.9 mmol/L (3.5-5.1); Sodium 140 mmol/L (136-145)
[2024-06-05] MEDS: hydrALAZINE HCL 20 MG/ML VL IV PRN (06:10)
--- NOTE | 2024-06-05 09:59 | ECG ---
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
[2024-06-05] MEDS: FUROSEMIDE 40 MG/4 ML VIAL IV SCH (10:41)
[2024-06-05] MEDS: ASPirin 81 mg TAB PO SCH (10:42)
[2024-06-05] MEDS: amLODIPine BESYLATE 5 MG TAB PO SCH (10:43)
[2024-06-05] MEDS: DOXYCYCLINE 100 MG TAB/CAP PO ONE (14:23)
[2024-06-05] MEDS: cefTRIAXone 1GM/50ML D5W 50 ML IV ONE (14:24)
[2024-06-05 16:05] LABS: COVID19 ANTIGEN SOFIA FIA NEGATIVE (NEGATIVE)
[2024-06-05 16:06] LABS: Rapid Influenza A Negative (Negative); Rapid Influenza B Negative (Negative)
--- NOTE | 2024-06-05 18:15 | DVHPNRES ---
Progress Note Date Seen: Jun 05, 2024 Resident Creating Document: NANY NATHAN RESIDENT Medical Necessity Reason Pt with a Central, PICC or Fol: Yes The following are medically ne: Sinha Catheter Subjective Review of Systems Patient is a 57-year-old female with a past medical history of hypertension, type 2 diabetes mellitus, CHF, COPD presented to the ED with a chief complaint of worsening shortness of breath for 2-3 days and left-sided chest pain radiating to the left arm for 1 day. EMS were called and at the scene reported high respiratory rate and the patient had increased work of breathing and was unable to speak in full sentences. Patient was saturating 83% on room air and was placed on oxygen and brought to the hospital for further evaluation. Patient had elevated blood pressure of SBP 240 following which she received 3 nitroglycerin loses with a blood pressure remaining at SBP 190 following which in the ER she was put on nicardipine drip which improved her blood pressure. Initial troponin level were increased at 297 and repeat showed decreased to 245. ECG showed sinus rhythm with sinus with no ST segment or T-wave abnormalities, right axis deviation. Past medical history: As per HPI Past surgical history: Not significant Social history: Patient was with family and denies smoking, alcohol, drug use Medications: Amlodipine 5 mg daily, carvedilol 12.5 mg b.i.d., furosemide 20 mg daily, albuterol inhaler as needed, metformin 500 mg b.i.d. Review of systems Patient seen and examined at the bedside Patient was on 4 L oxygen per minute, was in mild respiratory distress with mildly increased work of breathing with a respiratory rate of about 22-24/min Patient reported feeling better and mild shortness of breath, arm pain from the left shoulder to the left hand with stiffness in the left shoulder joint Denied chest pain, headache, palpitations, dizziness Objective vital signs Vital Sign Date Time Temp Pulse Resp B/P (MAP) Pulse Ox O2 Delivery O2 Flow Rate FiO2 06/05/24 14:33 65 148/80 06/05/24 13:00 97.5 18 100 97.5 06/05/24 07:29 Nasal Cannula* 6 44 Total Intake and Output 06/04/24 06/04/24 06/05/24 15:00 23:00 07:00 Intake Total 250 ml Output Total 3000 ml Balance 250 ml -3000 ml medications Current Medications Medications Dose Ordered Sig/Kim Route Start Time Stop Time Status Last Admin Dose Admin Furosemide 40 mg DAILY IV 06/05/24 10:00 06/05/24 10:41 40 MG Carvedilol 12.5 mg Q12HR PO 06/04/24 22:00 06/05/24 10:42 12.5 MG Amlodipine Besylate 5 mg DAILY PO 06/05/24 10:00 06/05/24 10:43 5 MG Aspirin 81 mg DAILY PO 06/05/24 10:00 06/05/24 10:42 81 MG Diagnostic Test (Pha) 1 strip ACHS 06/04/24 17:00 06/05/24 06:08 1 STRIP Insulin Human Regular ACHS SC 06/04/24 17:00 Dextrose 50 ml UD PRN IV 06/04/24 16:00 Sodium Chloride 10 ml Q8HR IV 06/04/24 22:00 06/05/24 14:25 10 ML Ondansetron HCl 4 mg Q4HP PRN IV 06/04/24 16:00 Acetaminophen 650 mg Q6HP PRN PO 06/04/24 16:00 06/05/24 06:10 650 MG Albuterol 2.5 mg Q6HR NEB 06/05/24 18:00 Ceftriaxone Sodium 50 ml @ 100 mls/hr DAILY@09 IV 06/06/24 09:00 Doxycycline Monohydrate 100 mg Q12HR PO 06/05/24 22:00 Ipratropium [place] 0.5 mg Q6HR NEB 06/05/24 18:00 Examination Constitutional: Patient was alert and oriented to time, place and person and does not appear to be in acute distress Gen - no pallor, no icterus, no cyanosis, no clubbing, no LAD, no edema . Skin - Patients skin is warm and dry. HEENT - normocephalic, atraumatic, moist mucous membranes. Neck - full ROM, no LAD Pulmonary - B/L equal breath sounds with basilar crackles, no wheezing, no stridor. cardiovascular - normal S1,S2 heard. no murmurs heard. peripheral pulses normal radial 2+, pedal 2+. GI - soft abdomen. no hepatospleenomegaly. Bowel sounds normoactive Neurological - right upper strength 5/5, left upper extremity strength 4/5, bilateral lower extremity strength 4/5, no facial droop, normal speech, no tremor, no sensory deficiets. laboratory and microbiology Laboratory Tests 06/05/24 04:58 Test 06/05/24 04:58 Range/Units Serum Glucose 132 H 74-106 mg/dL Problem List/Assessment/Plan Problem List/Assessment/Plan Assessment Acute on chronic hypoxic respiratory failure Acute exacerbation of heart failure with likely preserved ejection fraction ? Mitral valve stenosis vs regurgitation Suspected pneumonia due to gram+/-/atypical bacteria ? Flash pulmonary edema due to hypertension Hypertensive emergency NSTEMI likely type 2 due to demand ischemia H/o COPD Microcytic hypochromic anemia Chest x-ray showed cardiomegaly, right pleural effusion, bilateral interstitial pulmonary edema Echocardiography report pending Troponins trended 297->245->245 ECG showed sinus rhythm with no evidence of ST segment or T-wave abnormality, right axis deviation, incomplete RBBB POCUS bedside showed some air bronchograms in the right lower lung Plan - patient is oxygen via nasal cannula at 4 L/minute, we will try to titrate down to the home O2 as tolerated - Lasix 40 mg IV daily, goal negative balance of -2L over next 24 hours - blood pressure control with amlodipine and carvedilol - IV ceftriaxone and doxycycline p.o. 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 PUD prophylaxis: Famotidine 40 mg daily DVT prophylaxis: Enoxaparin 40 mg sc daily Goals of care discussed with the patient for over 25 minutes. Full code Plan discussed with Dr. Ha Plan discussed with: Patient My Orders My Orders Orders - NANY NATHAN RESIDENT Procedure Category Date Status Time Albuterol Medneb PHA 06/05/24 In Process (Ventolin Medneb) 18:00 Ceftriaxone 1gm/50ml PHA 06/06/24 In Process D5w (Rocephin) 09:00 Doxycycline Tablet PHA 06/05/24 In Process (Vibramycin Tablet) 22:00 Ipratropium Medneb PHA 3/25/25 In Process (Atrovent Medneb) 18:00 Date of Service: Jun 05, 2024 Billing Provider: OSMAN HA MD Common Visit Codes: [id number] INP/OBS CARE(HIGH) NANY NATHAN RESIDENT Jun 05, 2024 18:15 OSMAN HA MD Jun 07, 2024 13:54
[2024-06-05] MEDS: ENOXAPARIN SOD 40 MG/0.4 ML SYRINGE SC ONE (18:52)
[2024-06-05] MEDS: ALBUTEROL SULF 2.5 MG/0.5ML(0.5%) NEB SOLN NEB SCH (18:59)
[2024-06-05] MEDS: IPRATROPIUM BROM 0.5 MG/2.5ML INH SOL NEB SCH (18:59)
[2024-06-05] MEDS: CARVEDILOL 12.5 MG TAB PO SCH (22:49)
[2024-06-05] MEDS: DOXYCYCLINE 100 MG TAB/CAP PO SCH (22:50)
[2024-06-05] MEDS: ATORVASTATIN 20 MG TAB PO SCH (22:50)
--- NOTE | 2024-06-05 23:08 | DVHINCON2 ---
Date of service: Jun 05, 2024 Referring Physician eCsar Reason for Consultation Elevated troponin History of Present Illness This is a 57 year old female with a PMH of CHF, DM, High Lipids, HTN who was brought in by EMS with complaints of SOB x 2-3 days. Patient has associated left sided chest pain that radiates to her neck and left arm today. EMS reports patient on scene had RR at 60, working hard to breath and is unable to speak a full sentence. Patient was saturating at 83% room air and received a breathing treatment. EMS reports patient is on 2 liters of oxygen at home but on scene, patient was not using oxygen. Patient had elevated blood pressure of 240 systolic. EMS administered 3 NTG with repeated blood pressure of 190 systolic. EKG is NSR at 75 with RBBB. CBC is within normal limits. D-dimer 0.24. UA is negative for infection. CO2 33. Troponin 297 > 245 > 245. Viral swabs are negative. The patient was started on a nicardipine drip. Patient was admitted to the hospital. I am asked to consult on this patient. Family History: Patient reports no known family medical history. Allergies: Coded Allergies: Hydrocodone (Verified Allergy, Intermediate, nausea, 06/29/22) Morphine (Verified Allergy, Intermediate, 06/04/24) Hives and Rash Latex (Verified Allergy, Unknown, 06/26/22) Home Meds Active Scripts Furosemide (Lasix) 20 Mg Tb, 1 TAB PO DAILY, #90 TAB 1 Refill Prov:CHUCK BANKS HOSPICE CASE MANAGER 07/01/22 Budesonide-Formoterol Fumarate (Budesonide/Formoterol Fum 160-4.5 Mcg/Act) 1 Aer Aer, 1 AER IN BID for 60 Days, #1 AER 2 puffs twice daily Prov:CHUCK BANKS HOSPICE CASE MANAGER 07/01/22 Carvedilol (COREG) 12.5 Mg Tab, 12.5 MG OR BID for 90 Days, #180 TAB Prov:CHUCK BANKS HOSPICE CASE MANAGER 07/01/22 Reported Medications Ergocalciferol (VITAMIN D 93034 UNIT) 50,000 Unit Cp, 1 CAP PO QWEEKLY for 84 Days, #12 06/05/24 Metformin Hydrochloride (Metformin Hcl) 500 Mg Tab, 1 TAB PO BID for 90 Days, #180 06/05/24 Amlodipine Besylate (Amlodipine Besylate) 5 Mg Tab, 1 TAB PO DAILY for 90 Days, #90 06/05/24 Albuterol Sulfate (Albuterol Sulfate Hfa) 108 Mcg/Act Aer, 1-2 PUFF INH Q4-6HR PRN for 30 Days, #8.5 06/05/24 Current Medications Current Medications Medications (Trade) Dose Ordered Sig/Kim Route PRN Reason Start Time Stop Time Status Last Admin Furosemide (Lasix Injection) 40 mg DAILY IV 06/05/24 10:00 06/05/24 10:41 Amlodipine Besylate (Norvasc Tablet) 5 mg DAILY PO 06/05/24 10:00 06/05/24 10:43 Aspirin 81 mg DAILY PO 06/05/24 10:00 06/05/24 18:39 DC 06/05/24 10:42 Albuterol (Ventolin Medneb) 2.5 mg Q6HR NEB 06/05/24 18:00 06/05/24 18:59 Ceftriaxone Sodium 50 ml @ 100 mls/hr DAILY@09 IV 06/06/24 09:00 Doxycycline Monohydrate (Vibramycin Tablet) 100 mg Q12HR PO 06/05/24 22:00 06/05/24 22:50 Ipratropium [place] (Atrovent Medneb) 0.5 mg Q6HR NEB 06/05/24 18:00 06/05/24 18:59 Enoxaparin Sodium (Lovenox) 40 mg DAILY SC 06/06/24 10:00 Aspirin 81 mg DAILY PO 06/06/24 10:00 Atorvastatin Calcium (Lipitor) 40 mg HS PO 06/05/24 22:00 06/05/24 22:50 Famotidine (Pepcid Tablet) 40 mg DAILY PO 06/06/24 10:00 Carvedilol (Coreg Tablet) 25 mg Q12HR PO 06/05/24 22:00 06/05/24 22:49 Review of Systems Constitutional: denies: chills, diaphoresis, fatigue, fever, malaise, sweats, weakness, others EENTM: denies: blurred vision, double vision, ear bleeding, ear discharge, ear drainage, ear pain, ear ringing, eye pain, eye redness, hearing loss, mouth pain, mouth swelling, nasal discharge, nose bleeding, nose congestion, nose pain, photophobia, tearing, throat pain, throat swelling, voice changes, others Respiratory: reports: SOB at rest, shortness of breath, SOB with excertion; denies: cough, hemoptysis, orthopnea, stridor, wheezing, others Cardiovascular: reports: chest pain, left arm pain; denies: dizzy spells, diaphoresis, Dyspnea on exertion, edema, irregular heart beat, lightheadedness, palpitations, PND, syncope, others Gastrointestinal: denies: abdomen distended, abdominal pain, blood streaked bowels, constipated, diarrhea, dysphagia, difficulty swallowing, hematemesis, melena, nausea, poor appetite, poor fluid intake, rectal bleeding, rectal pain, vomiting, others Genitourinary: denies: abnormal vagina bleeding, burning, dyspareunia, dysuria, flank pain, frequency, hematuria, incontinence, pain, , vagina discharge, urgency, others Neurological: denies: dizziness, fainting, headache, left sided numbness, left sided weakness, numbness, paresthesia, pre-existing deficit, right sided numbness, right sided weakness, seizure, speech problems, tingling, tremors, weakness, others Musculoskeletal: reports: neck pain; denies: back pain, gout, joint pain, joint swelling, muscle pain, muscle stiffness, others Integumetry: denies: bruises, change in color, change in hair/nails, dryness, laceration, lesions, lumps, rash, wounds, others Allergic/Immunocompromised: denies: Difficulty Healing, Frequent Infections, Hives, Itching, others Hematologic/Lymphatic: denies: anemia, blood clots, easy bleeding, easy bruising, swollen glands, others Endocrine: denies: excessive hunger, excessive sweating, excessive thirst, excessive urination, flushing, intolerance to cold, intolerance to heat, unexplained weight gain, unexplained weight loss, others Psychiatric: denies: anxiety, bipolar disorder, depression, hopeless, panic disorder, schizophrenia, sleepless, suicidal, others All Other Systems: Reviewed and Negative Vital Signs Vital Signs Date Time Temp Pulse Resp B/P (MAP) Pulse Ox O2 Delivery O2 Flow Rate FiO2 06/05/24 22:49 74 141/76 06/05/24 21:00 97.7 20 100 97.7 06/05/24 18:59 Nasal Cannula* 2 28 Physical Exam GENERAL: Awake, alert, oriented. Obese. LUNGS: Clear. CARDIOVASCULAR: Heart sounds are good. ABDOMEN: Soft. Labs/Diagnostic Data Labs Test 06/05/24 22:42 06/05/24 14:25 06/05/24 04:58 06/04/24 17:02 Range/Units POC Glucose 90 70-106 mg/dl Influenza Type A Antigen Negative Negative Influenza Type B Antigen Negative Negative SARS-CoV-2 Antigen (Rapid) Negative NEGATIVE White Blood Count 6.3 4.4-10.8 10^3/uL Red Blood Count 4.99 4.0-5.20 10^6/uL Hemoglobin 11.4 L 12.2-16.2 g/dL Hematocrit 36.4 36.0-46.0 % Mean Corpuscular Volume 72.9 L 80.0-100.0 fL Mean Corpuscular Hemoglobin 22.8 L 28.0-32.0 pg Mean Corpuscular Hemoglobin Concent 31.3 L 32.0-36.0 g/dL Red Cell Distribution Width 15.0 H 11.8-14.3 % Platelet Count 173 140-450 10^3/uL Mean Platelet Volume 7.8 6.9-10.8 fL Neutrophils (%) (Auto) 78.7 37.0-80.0 % Lymphocytes (%) (Auto) 10.9 10.0-50.0 % Monocytes (%) (Auto) 7.4 0.0-12.0 % Eosinophils (%) (Auto) 2.4 0.0-7.0 % Basophils (%) (Auto) 0.6 0.0-2.0 % Neutrophils # (Auto) 4.9 1.6-8.6 10 ^3/uL Lymphocytes # (Auto) 0.7 0.4-5.4 10 ^3/uL Monocytes # (Auto) 0.5 0-1.3 10 ^3/uL Eosinophils # (Auto) 0.1 0-0.8 10 ^3/uL Basophils # (Auto) 0 0-0.2 10 ^3/uL Nucleated Red Blood Cells 0.0 % Sodium Level 140 136-145 mmol/L Potassium Level 3.9 3.5-5.1 mmol/L Chloride Level 101 98-107 mmol/L Carbon Dioxide Level 33 H 20-31 mmol/L Anion Gap 6 5-15 Blood Urea Nitrogen 13 9-23 mg/dL Creatinine 0.93 0.550-1.02 mg/dL Glomerular Filtration Rate Calc 71 >90 mL/min BUN/Creatinine Ratio 14.0 10.0-20.0 Serum Glucose 132 H 74-106 mg/dL Calcium Level 9.5 8.7-10.4 mg/dL Total Bilirubin 0.5 0.2-1.0 mg/dL Aspartate Amino Transferase (AST) 25 13-40 U/L Alanine Aminotransferase (ALT) 42 H 7-40 U/L Alkaline Phosphatase 81 46-116 U/L Total Protein 6.0 5.7-8.2 g/dL Albumin 4.1 3.2-4.8 g/dL Troponin I High Sensitivity 245 *H </=34 ng/L Test 06/04/24 14:03 06/04/24 13:30 Range/Units Urine Color Light-yellow Yellow Urine Clarity Clear Clear Urine pH 6.0 5.0-9.0 Urine Specific [place] 1.014 1.001-1.035 Urine Protein Negative Negative Urine Ketones Negative Negative Urine Blood Negative Negative /uL Urine Nitrite Negative Negative Urine Bilirubin Negative Negative Urine Urobilinogen Normal Negative mg/dL Urine Leukocyte Esterase Negative Negative /uL Urine RBC <1 0 - 4 /hpf Urine Microscopic WBC < 1 0-5 /HPF Urine Squamous Epithelial Cells Few <5 /hpf Urine Bacteria None seen None Seen /hpf Urine Glucose Normal Normal mg/dL D-Dimer, Quantitative 0.24 0.0-0.49 mg/L FEU B-Type Natriuretic Peptide 447.84 0-100 pg/mL Assessment Acute on chronic hypoxic respiratory failure. Acute on chronic diastolic heart failure. Hypertensive crisis. Elevated troponin. Generalized weakness. Acute respiratory failure. History of COPD. Microcytic hypochromic anemia. NSTEMI likely type 2 due to demand ischemia. Acute exacerbation of heart failure with likely preserved ejection fraction. ? Mitral valve stenosis vs regurgitation. Suspected pneumonia. ? Flash pulmonary edema due to hypertension. Plan/Recommendation I agree with your ongoing assessment and care of plan. Telemetry reviewed. Echocardiogram. Amlodipine, Coreg. Aspirin, Lipitor. Antibiotics as ordered. DVT prophylactics. Diuretics with Lasix. Additional plan as per the hospital course. A total of 45 minutes was spent reviewing the patient record, examining the patient, making a diagnostic and therapeutic plan, discussing this plan with medical personnel, following up on diagnostic studies and following the patient for clinical stability excluding any and all procedures. At least 50% of this time was spent in direct, [id number] contact. Plan discussed with: Patient LEANN MILLER MD Jun 05, 2024 23:08
[2024-06-06] VITALS (14 sets, daily range): BP systolic 116–152; BP diastolic 63–83; PULSE 60–77; RESP 16–20; TEMP 97.6–98.1; O2SAT 97–100
[2024-06-06 06:17] LABS: Eosinophils # (auto) 0.1 10 ^3/uL (0-0.8); Hemoglobin 11.7 g/dL (12.2-16.2); Mean Corpuscular Hemoglobin 23.4 pg (28.0-32.0); Monocytes # (auto) 0.4 10 ^3/uL (0-1.3); Nucleated Red Blood Cells % 0.1 %; Red Cell Distribution Width 14.8 % (11.8-14.3)
[2024-06-06 06:23] LABS: Basophils # (auto) 0.1 10 ^3/uL (0-0.2); Eosinophils % (auto) 2.4 % (0.0-7.0); Hematocrit 36.9 % (36.0-46.0); Lymphocytes # (auto) 0.8 10 ^3/uL (0.4-5.4); Lymphocytes % (auto) 15.6 % (10.0-50.0); Mean Corpuscular Hgb Conc. 31.7 g/dL (32.0-36.0); Mean Corpuscular Volume 73.6 fL (80.0-100.0); Monocytes % (auto) 8.5 % (0.0-12.0); Neutrophils # (auto) 3.7 10 ^3/uL (1.6-8.6); Neutrophils % (auto) 72.5 % (37.0-80.0); Platelet Count (auto) 190 10^3/uL (140-450); Red Blood Cells 5.01 10^6/uL (4.0-5.20); White Blood Cell 5.1 10^3/uL (4.4-10.8)
[2024-06-06 06:40] LABS: Potassium 4.3 mmol/L (3.5-5.1); Sodium 138 mmol/L (136-145)
[2024-06-06 06:41] LABS: Anion Gap 4 (5-15)
[2024-06-06 06:42] LABS: Calcium 9.1 mg/dL (8.7-10.4)
[2024-06-06 06:45] LABS: Carbon Dioxide 36 mmol/L (20-31); Chloride 98 mmol/L (98-107)
[2024-06-06 06:46] LABS: BUN/Creatinine Ratio 16.4 (10.0-20.0); Blood Urea Nitrogen 20 mg/dL (9-23); Glucose 86 mg/dL (74-106)
[2024-06-06] MEDS: cefTRIAXone 1GM/50ML D5W 50 ML IV SCH (10:04)
[2024-06-06] MEDS: ASPirin 81 mg TAB PO SCH (10:05)
[2024-06-06] MEDS: FAMOTIDINE 20 MG TAB PO SCH (10:06)
[2024-06-06] MEDS: ENOXAPARIN SOD 40 MG/0.4 ML SYRINGE SC SCH (10:06)
--- NOTE | 2024-06-06 22:25 | DVHPN2 ---
Progress Note - Dictate Date Seen: Jun 06, 2024 Medical Necessity Reason Pt with a Central, PICC or Fol: No The following are medically ne: Sinha Catheter Subjective Patient was seen and evaluated in follow up. Patient is on 2 LPM NC. Patient reports mild SB. CO2 36, DOUBLE END SEWER 1.22. BS are WNL. She denies any cardiac symptoms. Echocardiogram is ordered. Telemetry reviewed. vital signs Vital Sign Date Time Temp Pulse Resp B/P (MAP) Pulse Ox O2 Delivery O2 Flow Rate FiO2 06/06/24 11:48 60 16 100 06/06/24 11:42 Nasal Cannula 2.0 06/06/24 11:42 28 06/06/24 10:09 152/80 06/06/24 08:30 97.9 97.9 Total Intake and Output 06/05/24 06/05/24 06/06/24 14:59 22:59 06:59 Intake Total 460 ml 700 ml Output Total 3000 ml 825 ml Balance -2540 ml -125 ml medications Current Medications Medications Dose Ordered Sig/Kim Route Start Time Stop Time Status Last Admin Dose Admin Furosemide 40 mg DAILY IV 06/05/24 10:00 06/06/24 10:09 40 MG Amlodipine Besylate 5 mg DAILY PO 06/05/24 10:00 06/06/24 10:05 5 MG Diagnostic Test (Pha) 1 strip ACHS 06/04/24 17:00 06/06/24 11:29 1 STRIP Insulin Human Regular ACHS SC 06/04/24 17:00 Dextrose 50 ml UD PRN IV 06/04/24 16:00 Sodium Chloride 10 ml Q8HR IV 06/04/24 22:00 06/06/24 12:15 10 ML Ondansetron HCl 4 mg Q4HP PRN IV 06/04/24 16:00 Acetaminophen 650 mg Q6HP PRN PO 06/04/24 16:00 06/05/24 06:10 650 MG Albuterol 2.5 mg Q6HR NEB 06/05/24 18:00 06/06/24 11:42 2.5 MG Ceftriaxone Sodium 50 ml @ 100 mls/hr DAILY@09 IV 06/06/24 09:00 06/06/24 10:04 100 MLS/HR Doxycycline Monohydrate 100 mg Q12HR PO 06/05/24 22:00 06/06/24 10:05 100 MG Ipratropium [place] 0.5 mg Q6HR NEB 06/05/24 18:00 06/06/24 11:42 0.5 MG Enoxaparin Sodium 40 mg DAILY SC 06/06/24 10:00 06/06/24 10:06 40 MG Aspirin 81 mg DAILY PO 06/06/24 10:00 06/06/24 10:05 81 MG Atorvastatin Calcium 40 mg HS PO 06/05/24 22:00 06/05/24 22:50 40 MG Famotidine 40 mg DAILY PO 06/06/24 10:00 06/06/24 10:06 40 MG Carvedilol 25 mg Q12HR PO 06/05/24 22:00 06/06/24 10:06 25 MG objective GENERAL: Awake, alert, oriented. Obese. LUNGS: Clear. CARDIOVASCULAR: Heart sounds are good. ABDOMEN: Soft. laboratory and microbiology Laboratory Tests 06/06/24 04:47 Test 06/06/24 04:47 Range/Units Serum Glucose 86 74-106 mg/dL Problem List Acute on chronic hypoxic respiratory failure. Acute on chronic diastolic heart failure. Hypertensive crisis. Elevated troponin. Generalized weakness. Acute respiratory failure. History of COPD. Microcytic hypochromic anemia. NSTEMI likely type 2 due to demand ischemia. Acute exacerbation of heart failure with likely preserved ejection fraction. ? Mitral valve stenosis vs regurgitation. Suspected pneumonia. ? Flash pulmonary edema due to hypertension. Assessment/Plan Continued all current supportive medical care. Echocardiogram. Amlodipine, Coreg. Aspirin, Lipitor. Antibiotics as ordered. DVT prophylactics. Diuretics with Lasix. Additional plan as per the hospital course. Plan discussed with: Patient LEANN MILLER MD Jun 06, 2024 12:47
--- NOTE | 2024-06-06 22:43 | DVHPNRES ---
Progress Note Date Seen: Jun 06, 2024 Resident Creating Document: NANY NATHAN RESIDENT Medical Necessity Reason Pt with a Central, PICC or Fol: Yes The following are medically ne: Sinha Catheter Subjective Review of Systems Patient seen and examined at the bedside oxygen requirement back to baseline at 2L/min denies chest pain or any palpitations Objective vital signs Vital Sign Date Time Temp Pulse Resp B/P (MAP) Pulse Ox O2 Delivery O2 Flow Rate FiO2 06/06/24 22:37 75 139/79 06/06/24 21:00 97.6 18 97 97.6 06/06/24 19:09 Nasal Cannula 2.0 06/06/24 19:09 28 Total Intake and Output 06/05/24 06/05/24 06/06/24 15:00 23:00 07:00 Intake Total 460 ml 700 ml Output Total 3000 ml 825 ml Balance -2540 ml -125 ml medications Current Medications Medications Dose Ordered Sig/Kim Route Start Time Stop Time Status Last Admin Dose Admin Furosemide 40 mg DAILY IV 06/05/24 10:00 06/06/24 10:09 40 MG Amlodipine Besylate 5 mg DAILY PO 06/05/24 10:00 06/06/24 10:05 5 MG Diagnostic Test (Pha) 1 strip ACHS 06/04/24 17:00 06/06/24 22:00 1 STRIP Insulin Human Regular ACHS SC 06/04/24 17:00 Dextrose 50 ml UD PRN IV 06/04/24 16:00 Sodium Chloride 10 ml Q8HR IV 06/04/24 22:00 06/06/24 22:42 10 ML Ondansetron HCl 4 mg Q4HP PRN IV 06/04/24 16:00 Acetaminophen 650 mg Q6HP PRN PO 06/04/24 16:00 06/06/24 20:41 650 MG Albuterol 2.5 mg Q6HR NEB 06/05/24 18:00 06/06/24 19:09 2.5 MG Ceftriaxone Sodium 50 ml @ 100 mls/hr DAILY@09 IV 06/06/24 09:00 06/06/24 10:04 100 MLS/HR Doxycycline Monohydrate 100 mg Q12HR PO 06/05/24 22:00 06/06/24 22:36 100 MG Ipratropium [place] 0.5 mg Q6HR NEB 06/05/24 18:00 06/06/24 19:09 0.5 MG Enoxaparin Sodium 40 mg DAILY SC 06/06/24 10:00 06/06/24 10:06 40 MG Aspirin 81 mg DAILY PO 06/06/24 10:00 06/06/24 10:05 81 MG Atorvastatin Calcium 40 mg HS PO 06/05/24 22:00 06/06/24 22:37 40 MG Famotidine 40 mg DAILY PO 06/06/24 10:00 06/06/24 10:06 40 MG Carvedilol 25 mg Q12HR PO 06/05/24 22:00 06/06/24 22:37 25 MG Examination Constitutional: Patient was alert and oriented to time, place and person and does not appear to be in acute distress Gen - no pallor, no icterus, no cyanosis, no clubbing, no LAD, no edema . Skin - Patients skin is warm and dry. HEENT - normocephalic, atraumatic, moist mucous membranes. Neck - full ROM, no LAD Pulmonary - B/L equal breath sounds with minimal basilar crackles, no wheezing, no stridor. cardiovascular - normal S1,S2 heard. no murmurs heard. peripheral pulses normal radial 2+, pedal 2+. GI - soft abdomen. no hepatospleenomegaly. Bowel sounds normoactive Neurological - right upper strength 5/5, left upper extremity strength 4/5, bilateral lower extremity strength 4/5, no facial droop, normal speech, no tremor, no sensory deficiets. laboratory and microbiology Laboratory Tests 06/06/24 04:47 Test 06/06/24 04:47 Range/Units Serum Glucose 86 74-106 mg/dL Problem List/Assessment/Plan Problem List/Assessment/Plan Assessment Acute on chronic hypoxic respiratory failure Acute exacerbation of heart failure with likely preserved ejection fraction ? Mitral valve stenosis vs regurgitation Suspected pneumonia due to gram+/-/atypical bacteria ? Flash pulmonary edema due to hypertension Hypertensive emergency NSTEMI likely type 2 due to demand ischemia H/o COPD Microcytic hypochromic anemia Chest x-ray showed cardiomegaly, right pleural effusion, bilateral interstitial pulmonary edema Echocardiography report pending Troponins trended 297->245->245 ECG showed sinus rhythm with no evidence of ST segment or T-wave abnormality, right axis deviation, incomplete RBBB POCUS bedside showed some air bronchograms in the right lower lung Plan - patient is oxygen via nasal cannula at 4 L/minute, we will try to titrate down to the home O2 as tolerated - Lasix 40 mg IV daily, goal negative balance of -2L over next 24 hours - blood pressure control with amlodipine and carvedilol - IV ceftriaxone and doxycycline p.o. 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 and she has been worked up for mitral valve stenosis/regurgitation and reports that she has been advised against any surgery. PUD prophylaxis: Famotidine 40 mg daily DVT prophylaxis: Enoxaparin 40 mg sc daily Goals of care discussed with the patient for over 25 minutes. Full code Plan discussed with Dr. Ha Plan discussed with: Patient My Orders My Orders Orders - NANY NATHAN Procedure Category Date Status Time Pt Request For Service PT 06/06/24 Logged 14:16 Date of Service: Jun 06, 2024 Billing Provider: OSMAN HA MD Common Visit Codes: [id number] INP/OBS CARE(HIGH) NANY NATHAN RESIDENT Jun 06, 2024 22:43 OSMAN HA MD Jun 08, 2024 11:21
[2024-06-07] VITALS (14 sets, daily range): BP systolic 106–157; BP diastolic 65–97; PULSE 60–70; RESP 14–19; TEMP 36.8; O2SAT 91–100
[2024-06-07 05:56] LABS: Basophils # (auto) 0 10 ^3/uL (0-0.2); Basophils % (auto) 0.4 % (0.0-2.0); Eosinophils # (auto) 0.1 10 ^3/uL (0-0.8); Eosinophils % (auto) 2.5 % (0.0-7.0); Hematocrit 38.4 % (36.0-46.0); Hemoglobin 11.9 g/dL (12.2-16.2); Lymphocytes # (auto) 0.9 10 ^3/uL (0.4-5.4); Lymphocytes % (auto) 18.1 % (10.0-50.0); Mean Corpuscular Hemoglobin 22.8 pg (28.0-32.0); Mean Corpuscular Hgb Conc. 30.9 g/dL (32.0-36.0); Mean Corpuscular Volume 73.7 fL (80.0-100.0); Monocytes # (auto) 0.4 10 ^3/uL (0-1.3); Monocytes % (auto) 8.7 % (0.0-12.0); Neutrophils # (auto) 3.4 10 ^3/uL (1.6-8.6); Neutrophils % (auto) 70.3 % (37.0-80.0); Platelet Count (auto) 189 10^3/uL (140-450); Red Blood Cells 5.21 10^6/uL (4.0-5.20); White Blood Cell 4.9 10^3/uL (4.4-10.8)
[2024-06-07 06:04] LABS: Anion Gap 4 (5-15); Calcium 9.3 mg/dL (8.7-10.4); Chloride 99 mmol/L (98-107); Potassium 4.2 mmol/L (3.5-5.1); Sodium 140 mmol/L (136-145)
[2024-06-07 06:09] LABS: Glucose 94 mg/dL (74-106)
[2024-06-07 06:10] LABS: BUN/Creatinine Ratio 20.4 (10.0-20.0); Blood Urea Nitrogen 22 mg/dL (9-23)
[2024-06-07 06:17] LABS: Carbon Dioxide 37 mmol/L (20-31)
[2024-06-07] MEDS ORDERED: ASPI-325 PO (12:38)
[2024-06-07] MEDS ORDERED: FURO1TAB31 PO (12:38)
[2024-06-07] MEDS ORDERED: CARV-216 PO (12:38)
[2024-06-07] MEDS ORDERED: AUG875T PO (12:40)
[2024-06-07] MEDS ORDERED: ATOR40TA52 PO (12:40)
--- NOTE | 2024-06-07 22:22 | DVHDSRES ---
Discharge Summary Date of Admission Resident Creating Document: NANY NATHAN RESIDENT Jun 04, 2024 at 16:34 Date of Discharge: Jun 07, 2024 Admitting Diagnosis Acute on chronic diastolic heart failure Hypertensive crisis Elevated troponin Generalized weakness Acute respiratory failure Wounds: none Labs/Diagnostic Data: Laboratory Results Test 06/07/24 11:05 06/07/24 05:25 06/05/24 14:25 06/05/24 04:58 POC Glucose 89 mg/dl (70-106) White Blood Count 4.9 10^3/uL (4.4-10.8) Red Blood Count 5.21 10^6/uL (4.0-5.20) Hemoglobin 11.9 g/dL (12.2-16.2) Hematocrit 38.4 % (36.0-46.0) Mean Corpuscular Volume 73.7 fL (80.0-100.0) Mean Corpuscular Hemoglobin 22.8 pg (28.0-32.0) Mean Corpuscular Hemoglobin Concent 30.9 g/dL (32.0-36.0) Red Cell Distribution Width 15.0 % (11.8-14.3) Platelet Count 189 10^3/uL (140-450) Mean Platelet Volume 8.3 fL (6.9-10.8) Neutrophils (%) (Auto) 70.3 % (37.0-80.0) Lymphocytes (%) (Auto) 18.1 % (10.0-50.0) Monocytes (%) (Auto) 8.7 % (0.0-12.0) Eosinophils (%) (Auto) 2.5 % (0.0-7.0) Basophils (%) (Auto) 0.4 % (0.0-2.0) Neutrophils # (Auto) 3.4 10 ^3/uL (1.6-8.6) Lymphocytes # (Auto) 0.9 10 ^3/uL (0.4-5.4) Monocytes # (Auto) 0.4 10 ^3/uL (0-1.3) Eosinophils # (Auto) 0.1 10 ^3/uL (0-0.8) Basophils # (Auto) 0 10 ^3/uL (0-0.2) Nucleated Red Blood Cells 0.0 % Sodium Level 140 mmol/L (136-145) Potassium Level 4.2 mmol/L (3.5-5.1) Chloride Level 99 mmol/L (98-107) Carbon Dioxide Level 37 mmol/L (20-31) Anion Gap 4 (5-15) Blood Urea Nitrogen 22 mg/dL (9-23) Creatinine 1.08 mg/dL (0.550-1.02) Glomerular Filtration Rate Calc 59 mL/min (>90) BUN/Creatinine Ratio 20.4 (10.0-20.0) Serum Glucose 94 mg/dL (74-106) Calcium Level 9.3 mg/dL (8.7-10.4) Influenza Type A Antigen Negative (Negative) Influenza Type B Antigen Negative (Negative) SARS-CoV-2 Antigen (Rapid) Negative (NEGATIVE) Total Bilirubin 0.5 mg/dL (0.2-1.0) Aspartate Amino Transferase (AST) 25 U/L (13-40) Alanine Aminotransferase (ALT) 42 U/L (7-40) Alkaline Phosphatase 81 U/L (46-116) Total Protein 6.0 g/dL (5.7-8.2) Albumin 4.1 g/dL (3.2-4.8) Test 06/04/24 17:02 06/04/24 14:03 06/04/24 13:30 Troponin I High Sensitivity 245 ng/L (</=34) Urine Color Light-yellow (Yellow) Urine Clarity Clear (Clear) Urine pH 6.0 (5.0-9.0) Urine Specific [place] 1.014 (1.001-1.035) Urine Protein Negative (Negative) Urine Ketones Negative (Negative) Urine Blood Negative /uL (Negative) Urine Nitrite Negative (Negative) Urine Bilirubin Negative (Negative) Urine Urobilinogen Normal mg/dL (Negative) Urine Leukocyte Esterase Negative /uL (Negative) Urine RBC <1 /hpf (0 - 4) Urine Microscopic WBC < 1 /HPF (0-5) Urine Squamous Epithelial Cells Few /hpf (<5) Urine Bacteria None seen /hpf (None Seen) Urine Glucose Normal mg/dL (Normal) D-Dimer, Quantitative 0.24 mg/L FEU (0.0-0.49) B-Type Natriuretic Peptide 447.84 pg/mL (0-100) Other Laboratory Tests 06/07/24 05:25 Brief Hx & Hospital Course: HPI Patient is a 57-year-old female with a past medical history of hypertension, type 2 diabetes mellitus, CHF, COPD presented to the ED with a chief complaint of worsening shortness of breath for 2-3 days and left-sided chest pain radiating to the left arm for 1 day. EMS were called and at the scene reported high respiratory rate and the patient had increased work of breathing and was unable to speak in full sentences. Patient was saturating 83% on room air and was placed on oxygen and brought to the hospital for further evaluation. Patient had elevated blood pressure of SBP 240 following which she received 3 nitroglycerin loses with a blood pressure remaining at SBP 190 following which in the ER she was put on nicardipine drip which improved her blood pressure. Initial troponin level were increased at 297 and repeat showed decreased to 245. ECG showed sinus rhythm with sinus with no ST segment or T-wave abnormalities, right axis deviation. Past medical history: As per [facility] Past surgical history: Not significant Social history: Patient was with family and denies smoking, alcohol, drug use Medications: Amlodipine 5 mg daily, carvedilol 12.5 mg b.i.d., furosemide 20 mg daily, albuterol inhaler as needed, metformin 500 mg b.i.d. Brief Hospital course Patient came in with worsening shortness of breath. Intial chest X ray showed cardiomegaly with pulmonary congestion and interstitial pulmonary edema. Patient came in with elevated blood pressure and was started on nicardipine drip in the hospital until the blood pressure was stabilised. Patient was diuresed with a target of negative 2L fluid balance per 24 hrs. Over the course of hospital stay, patient's O2 requirement came down to her baseline 2L/min. Physical therapy evaluated the patient asnd she was able to walk more than 40 feet with a FWW and O2. ECHO cardiogram was not reported by the assembled wood products repairer but on viual estimate patient had good wall contraction , had mitral regurgitation with thickening of the mitral valve for which the patient reported she has already been worked up and has been advised against any surgical intervention by her primary assembled wood products repairer . Patient was discharged in stable condition to home. Discharge Plan Follow up with the PCP and the Primary assembled wood products repairer in 1 week. Follow up on the potassium level Medications: Carvedilol dose increased to 25mg bid lasix 40 mg daily potassium 20meq MWF continued on the home medications Consults/Reason for consult Cardiology consultation Operations or Procedures none Condition at Discharge: Good Final Diagnosis/Problems List Discharge Disposition: Home Discharge Instruct/Medications Diet: Consistent carbohydrate, Cardiac 2g Na,low cholest Activity: No Restrictions, As Tolerated Discharge Statement: "Patient was advised to return to the ER or call 911 if any headaches, dizziness, shortness of breath, chest pain, abdominal pain, bleeding, fevers, or worsening of medical condition. Patient was counseled about treatment plan, medications, possible side effects, patientverbalized understanding. All questions were answered to the best of my ability. This discharge took greater then 30 minutes in planning, reviewing documentation, counseling the patient, and discussing with other team members." ASSESSMENT ASSESSMENT Assessment Date of Service: Jun 07, 2024 Billing Provider: OSMAN HINTON MD Common Visit Codes: 99974-VWV/OBS DISCH DAY >30min NANY NATHAN RESIDENT Jun 07, 2024 22:22 OSMAN HINTON MD Jun 08, 2024 11:24
[2024-06-07] MEDS ORDERED: POTA-36 PO (22:24)
--- NOTE | 2024-06-07 22:26 | DVHPN2 ---
Progress Note - Dictate Date Seen: Jun 07, 2024 Medical Necessity Reason Pt with a Central, PICC or Fol: Yes The following are medically ne: Sinha Catheter Subjective Patient was seen and evaluated in follow up. Patient has no new complaints at this time. Patient denies any cardiac symptoms. Patient is cardiac stable for discharge. Telemetry reviewed. vital signs Vital Sign Date Time Temp Pulse Resp B/P (MAP) Pulse Ox O2 Delivery O2 Flow Rate FiO2 06/07/24 11:26 62 18 100 06/07/24 11:20 Nasal Cannula* 1 06/07/24 09:00 97.6 143/80 (101) 97.6 Total Intake and Output 06/06/24 06/06/24 06/07/24 15:00 23:00 07:00 Intake Total 50 ml 400 ml 750 ml Output Total 1325 ml 1050 ml Balance 50 ml -925 ml -300 ml medications Current Medications Medications Dose Ordered Sig/Kim Route Start Time Stop Time Status Last Admin Dose Admin Furosemide 40 mg DAILY IV 06/05/24 10:00 06/07/24 08:56 40 MG Amlodipine Besylate 5 mg DAILY PO 06/05/24 10:00 06/07/24 08:58 5 MG Diagnostic Test (Pha) 1 strip ACHS 06/04/24 17:00 06/07/24 11:11 1 STRIP Insulin Human Regular ACHS SC 06/04/24 17:00 Dextrose 50 ml UD PRN IV 06/04/24 16:00 Sodium Chloride 10 ml Q8HR IV 06/04/24 22:00 06/07/24 06:29 10 ML Ondansetron HCl 4 mg Q4HP PRN IV 06/04/24 16:00 Acetaminophen 650 mg Q6HP PRN PO 06/04/24 16:00 06/06/24 20:41 650 MG Albuterol 2.5 mg Q6HR NEB 06/05/24 18:00 06/07/24 11:20 2.5 MG Ceftriaxone Sodium 50 ml @ 100 mls/hr DAILY@09 IV 06/06/24 09:00 06/07/24 08:55 100 MLS/HR Doxycycline Monohydrate 100 mg Q12HR PO 06/05/24 22:00 06/07/24 08:55 100 MG Ipratropium [place] 0.5 mg Q6HR NEB 06/05/24 18:00 06/07/24 11:20 0.5 MG Enoxaparin Sodium 40 mg DAILY SC 06/06/24 10:00 06/07/24 08:57 40 MG Aspirin 81 mg DAILY PO 06/06/24 10:00 06/07/24 08:58 81 MG Atorvastatin Calcium 40 mg HS PO 06/05/24 22:00 06/06/24 22:37 40 MG Famotidine 40 mg DAILY PO 06/06/24 10:00 06/07/24 08:58 40 MG Carvedilol 25 mg Q12HR PO 06/05/24 22:00 06/07/24 08:59 25 MG objective GENERAL: Awake, alert, oriented. Obese. LUNGS: Clear. CARDIOVASCULAR: Heart sounds are good. ABDOMEN: Soft. laboratory and microbiology Laboratory Tests 06/07/24 05:25 Test 06/07/24 05:25 Range/Units Serum Glucose 94 74-106 mg/dL Problem List Acute on chronic hypoxic respiratory failure. Acute on chronic diastolic heart failure. Hypertensive crisis. Elevated troponin. Generalized weakness. Acute respiratory failure. History of COPD. Microcytic hypochromic anemia. NSTEMI likely type 2 due to demand ischemia. Acute exacerbation of heart failure with likely preserved ejection fraction. ? Mitral valve stenosis vs regurgitation. Suspected pneumonia. ? Flash pulmonary edema due to hypertension. Assessment/Plan Continued all current supportive medical care. Amlodipine, Coreg. Aspirin, Lipitor. Antibiotics as ordered. DVT prophylactics. Diuretics with Lasix. Additional plan as per the hospital course. Plan discussed with: Patient LEANN MILLER MD Jun 07, 2024 12:00
== END 2024-06-07 18:13 | disposition home or self-care (01) | DRG 133 ==
LOC: ER 13:03 → EDBD 13:03 → EDUNIT# 13:03 → OVERFLOW 16:34 → TELE-WESTW 06-05 05:10
PROVIDERS: ADMIT Student in an Organized Health Care Education/Training Program; ATTEND Student in an Organized Health Care Education/Training Program
DX: J96.21 Acute and chronic respiratory failure with hypoxia (principal); I21.A1 Myocardial infarction type 2; I50.33 Acute on chronic diastolic (congestive) heart failure; J91.8 Pleural effusion in other conditions classified elsewhere; E11.9 Type 2 diabetes mellitus without complications; D50.9 Iron deficiency anemia, unspecified; E78.5 Hyperlipidemia, unspecified; I16.9 Hypertensive crisis, unspecified; I11.0 Hypertensive heart disease with heart failure; J44.9 Chronic obstructive pulmonary disease, unspecified; Z20.822 Contact with and (suspected) exposure to COVID-19; M54.2 Cervicalgia; Z88.5 Allergy status to narcotic agent
CPT/HCPCS: 36415; 71045; 80048; 80053; 81001; 82962; 83880; 84484; 85025; 85379; 87426; 87804; 93005; 93306; 94640; 97110; 97116; 97162; 97530; 99291; G0378